=== PATIENT | female | born 1975 ===

== ENCOUNTER 2016-10-12 18:47 | Emergency (ER) | payer SELFPAY ==
[2016-10-12 19:02] VITALS: BP 130/86
== END 2016-10-12 22:00 | disposition left against medical advice (07) ==
LOC: ED 18:47
DX: M54.2 Cervicalgia (principal); M54.9 Dorsalgia, unspecified; Z53.21 Procedure and treatment not carried out due to patient leaving prior to being seen by health care provider; V89.2XXA Person injured in unspecified motor-vehicle accident, traffic, initial encounter; Y93.89 Activity, other specified; Y99.8 Other external cause status; Y92.488 Other paved roadways as the place of occurrence of the external cause